=== PATIENT | male | born 1950 | race Caucasian/White ===

== ENCOUNTER 2022-12-22 11:23 | Day surgery (SDC) | payer MEDICARE, MEDICAID ==
[2022-12-22] VITALS (14 sets, daily range): BP systolic 90–130; BP diastolic 36–76
[~2022-12-22] VITALS: Ht 180.3 cm; Wt 58.7 kg
[~2022-12-22 11:23] MED LIST: ALBU8.5H17 IH; ATOR20TA PO; KEP500T PO
[2022-12-22] MEDS ORDERED: LIDOcaine 1%/PF 5ML 10 MG/ML VIAL SQ ONE (11:35)
[2022-12-22] MEDS ORDERED: fentaNYL/PF 50MCG/1 ML 2ML syringe ONE (11:39)
[2022-12-22] MEDS ORDERED: midazolam 1 mg/ML 2ml injection ONE (11:39)
[2022-12-22] MEDS ORDERED: FLUO20CA39 PO (11:51)
[2022-12-22] MEDS ORDERED: ATOR20TA66 PO (11:51)
[2022-12-22] MEDS ORDERED: LEVE500T PO (11:51)
[2022-12-22 13:06] LABS: HEMATOCRIT 39.1 % (42.0-52.0); MEAN CORPUSCULAR HEMOGLOBIN 32.5 PG (27.0-31.0); MEAN CORPUSCULAR HGB CONC 33.2 g/dL (33.0-36.5); MEAN PLATELET VOLUME 8.2 FL (7.4-10.4); PLATELET COUNT 388 X10'3 (140-440); RED BLOOD COUNT 3.99 X10'6 (4.70-6.10); RED CELL DISTRIBUTION WIDTH 13.3 % (11.5-14.5); WHITE BLOOD COUNT 6.6 X10'3 (4.5-11.0)
[2022-12-22 13:07] LABS: ALBUMIN 2.9 G/DL (3.4-5.0); ANION GAP 9 (8-16); BLOOD UREA NITROGEN 17 MG/DL (7-18); BUN/CREATININE RATIO 16.2 (10.0-20.0); CHLORIDE 100 MMOL/L (99-107); CREATININE 1.05 MG/DL (0.60-1.10); GLUCOSE 92 MG/DL (70-104); POTASSIUM 4.3 MMOL/L (3.5-5.1); SODIUM 137 MMOL/L (135-145); TOTAL CARBON DIOXIDE 28.3 MMOL/L (24-32); eGFR 69 ML/MIN
[2022-12-22] MEDS ORDERED: iohexol 300 MG/1 ML 50ml polymer ONE (13:39)
[2022-12-22 13:50] LABS: PLATELET ESTIMATE NORMAL; TOTAL CELLS COUNTED 100
[2022-12-22] MEDS ORDERED: gelatin sponge, absorbable (Gelfoam 12-7MM) sponge TP ONE (14:51)
== END 2022-12-22 16:45 | disposition home or self-care (01) ==
LOC: SSTAY O 11:23
PROVIDERS: ATTEND Radiology Vascular & Interventional Radiology
DX: K76.89 Other specified diseases of liver (principal); C83.39 Diffuse large B-cell lymphoma, extranodal and solid organ sites; Z79.899 Other long term (current) drug therapy; F17.290 Nicotine dependence, other tobacco product, uncomplicated; Z85.828 Personal history of other malignant neoplasm of skin
CPT/HCPCS: 36415; 47000; 76942; 80048; 85025; 85610; 99152; 99153; J2250; J3010; J7030; Q9967; 85007; A4615